=== PATIENT | female | born 1975 | race American Indian/Alaskan Native ===

== ENCOUNTER 2020-06-28 15:38 | Outpatient (CLI) | payer MEDICAID, OTHER | END 2020-06-28 15:39 | disposition home or self-care (01) | LOC: LABHHL 15:38 | PROVIDERS: ATTEND Surgery | DX: N63.11 Unspecified lump in the right breast, upper outer quadrant (principal) | CPT/HCPCS: 88305; 88341; 88342 ==

== ENCOUNTER 2020-08-07 10:22 | Day surgery (SDC) | payer MEDICAID, OTHER ==
[~2020-08-07 10:22] MED LIST: ACETAMINOPHEN 500 MG TAB PO SCH; BUPIVACAINE/PF (0.25%) 2.5 MG/ML 30 ML VIAL INFILTRATI ONE; HEPARIN 10,000 UNITS/10 ML VIAL ONE; LACTATED RINGERS 1,000 ML IV SCH; LIDOCAINE (1%) 10 MG/1 ML VIAL 20 ML MDV ONE; MIDAZOLAM 2 MG/2 ML INJ IV NR; SODIUM CHLORIDE 0.9% 100 ML ONE; ceFAZolin/Water 2 GM/20 ML 2 GM/20 ML SYRINGE IV NR
[2020-08-07] MEDS ORDERED: ONDANSETRON 4 MG/2 ML INJ IV PRN (11:08)
[2020-08-07] MEDS ORDERED: HYDROcodone/ACETAMINOPHEN 5-325 MG TAB PO PRN (11:08)
[2020-08-07] MEDS ORDERED: fentaNYL 100 MCG/2 ML INJ IV PRN (11:08)
--- NOTE | 2020-08-07 11:08 | Anesthesia Day of Surgery ---
Anesthesia Day of Surgery - Day of Surgery Patient Examined: Yes Patient H&P Reviewed: Yes Patient is NPO: Yes
--- NOTE | 2020-08-07 11:08 | Anesthesia Consultation ---
Anesthesia Consult and Med Hx Date of service: 08/07/20 - Airway Anesthetic Teeth Evaluation: Good ROM Head & Neck: Adequate Mental/Hyoid Distance: Adequate Mallampati Class: Class II Intubation Access Assessment: Probably Good - Pulmonary Exam CTA: Yes - Cardiac Exam Cardiac Exam: RRR - Pre-Operative Health Status ASA Pre-Surgery Classification: ASA2 Proposed Anesthetic Plan: MAC - Pulmonary Hx Smoking: No Hx Asthma: Yes Hx Respiratory Symptoms: No Hx Sleep Apnea: No (CORINNA PRE SCREEN NEGATIVE) - Cardiovascular System Hx Hypertension: No - Central Nervous System CVA: No - Endocrine Hx Renal Disease: No Hx Liver Disease: No Hx Insulin Dependent Diabetes: No Hx Non-Insulin Dependent Diabetes: No Hx Thyroid Disease: No - Other Systems Hx Cancer: Yes (breast ca) - Additional Comments Anesthesia Medical History Comments: No prior GA of FHx anesthetic complications.
[2020-08-07] MEDS ORDERED: propofoL 200 MG/20 ML VIAL IV ONE ×2 (12:13→13:13)
[2020-08-07] MEDS ORDERED: HYDROmorphone 1 MG/1 ML INJ ONE (12:13)
[2020-08-07] MEDS ORDERED: LIDOCAINE MPF (2%) 20 MG/1 ML VIAL 5 ML ONE (12:14)
[2020-08-07] MEDS ORDERED: MIDAZOLAM 2 MG/2 ML INJ ONE (12:34)
[2020-08-07] MEDS ORDERED: HEPARIN 10,000 UNITS/10 ML VIAL IV ONE (13:06)
[2020-08-07] MEDS ORDERED: SODIUM CHLORIDE 0.9% IRR 1,500 ML BOTTLE IR ONE (13:06)
[2020-08-07] MEDS ORDERED: SODIUM CHLORIDE 0.9% 100 ML IVPB IV ONE (13:07)
[2020-08-07] MEDS ORDERED: LIDOCAINE (1%) 10 MG/1 ML VIAL 20 ML MDV INFILTRATI ONE (13:08)
[2020-08-07] MEDS ORDERED: BUPIVACAINE/PF (0.25%) 2.5 MG/ML 30 ML VIAL INFILTRATI ONE (13:08)
--- NOTE | 2020-08-07 13:59 | Short Stay Summary ---
Short Stay Documentation Date of service: 08/07/20 - History Principal diagnosis: right breast cancer H&P: obtained from office - Allergies and Medications Current Medications: Allergies No Known Allergies Allergy (Verified 08/07/20 12:25) Home Medications Medication Instructions Recorded Confirmed Last Taken Type Calcitrate + Vit D Caplet 1 cap PO DAILY 08/02/20 08/07/20 08/06/20 08:00 History Multi For Her Tablet 1 cap PO DAILY 08/02/20 08/07/20 08/06/20 08:00 History Active Medications Acetaminophen (Tylenol) 1,000 mg PO PREOP NOEL Last Admin: 08/07/20 10:50 Dose: 1,000 mg Documented by: Hydrocodone Bitart/Acetaminophen (Anza 5/325) 2 each PO ONCE PRN PRN Reason: Pain, Moderate (4-6) Stop: 08/07/20 23:00 Fentanyl (Sublimaze) 50 mcg IV Q5MIN PRN PRN Reason: Pain , Severe (7-10) Stop: 08/07/20 23:00 Cefazolin Sodium (Ancef/Sterile Water 2 Gm/20 Ml) 2 gm in 20 mls @ 80 mls/hr IV PREOP NR Stop: 08/07/20 18:00 Lactated Ringer's (Lactated Ringers) 1,000 mls @ 100 mls/hr IV DIRECT NOEL Stop: 08/07/20 23:59 Last Admin: 08/07/20 11:00 Dose: 100 mls/hr Documented by: Midazolam HCl (Versed) 2 mg IV PREOP NR Stop: 08/07/20 18:00 Last Admin: 08/07/20 12:10 Dose: 2 mg Documented by: Ondansetron HCl (Zofran) 4 mg IV ONCE PRN PRN Reason: Nausea And Vomiting Stop: 08/07/20 23:00 - Brief post op/procedure progress note Date of procedure: 08/07/20 Pre-op diagnosis: right breast cancer Post-op diagnosis: same Procedure: left internal jugular port a cath placement with mindray ultrasound guidance Anesthesia: MAC, local Findings: good placement of port without PTX on CXR Surgeon: LALITA JONES Estimated blood loss: minimal Pathology: none Condition: stable - Hospital course Hospital course: Pt observed in PACU and discharged to home when criteria met - Disposition Condition at discharge: Good Disposition: DC-01 TO HOME OR SELFCARE Short Stay Discharge Plan Activity: no restrictions Diet: regular Wound: open to air, per your surgeon's advice Additional Instructions: Please see printed discharge paperwork Follow up with: PRIMARY CARE, [Primary Care Provider] - 7 Days LALITA JONES DO [Staff Physician] - 14 Days Prescriptions: HYDROcodone/APAP 5-325 [Anza 5-325 mg TAB] 1 each PO Q6H PRN #20 tablet PRN Reason: Pain , Severe (7-10)
--- NOTE | 2020-08-07 14:14 | Fluoroscopy Report ---
CHEST 1 VIEW 08/07/2020 1:07 PM INDICATION / CLINICAL INFORMATION: LEFT BREAST CANCER. COMPARISON: None available. FINDINGS: SUPPORT DEVICES: Left internal jugular Port-A-Cath has tip in SVC HEART / MEDIASTINUM: No significant abnormality. LUNGS / PLEURA: No significant pulmonary or pleural abnormality. No pneumothorax. ADDITIONAL FINDINGS: No significant additional findings. IMPRESSION: 1. No acute findings. Signer Name: Dusty Quinones MD Signed: 08/07/2020 2:09 PM Workstation Name: [id number]
--- NOTE | 2020-08-07 15:01 | Operative Report ---
Operative Report Operative Report: Date of procedure: 08/07/20 Pre-op diagnosis: right breast cancer Post-op diagnosis: same Procedure: left internal jugular port a cath placement with mindray ultrasound guidance Anesthesia: MAC, local Findings: good placement of port without PTX on CXR Surgeon: LALITA JONES Estimated blood loss: minimal Pathology: none Condition: stable Hospital course: Pt observed in PACU and discharged to home when criteria met HPI and indication: Patient is a 44-year-old female who has been diagnosed with right breast cancer. The patient is seen by Dr. Millard and deemed a candidate for chemotherapy. All of the risks associated with the procedure were discussed with the patient including but not limited to pneumothorax, infection, bleeding, malpositioned port, injury to other structures. The patient understands and all questions were answered. Consent was signed and placed on chart. Procedure in detail: The patient was identified in the preoperative area, taken back to operating room, placed on operating table in supine position. After anesthesia was induced both arms were tucked and upper chest and neck were prepped and draped in usual sterile fashion. A timeout was performed. The was placed in Trendelenburg position. Local anesthetic was infiltrated into the skin at the intended puncture site. The left subclavian vein and internal jugular vein were visualized using ultrasound guidance. 2 attempts were made to access the left subclavian vein which were unsuccessful. Therefore I accessed the left internal jugular vein. There was respiratory variation and the vein became near flat when the patient inspired. The left internal jugular vein was accessed on the second stick and there was return of dark red nonpulsatile blood. The wire was threaded under fluoroscopy without resistance and positio mark confirmed. The needle was then removed. Local anesthetic was infiltrated into the skin at the intended incision site and in the subcutaneous tissue along the tunnel. Using a 15 blade, an incision was made in the left upper chest and dissection carried down through the skin and subcutaneous tissue using Bovie electrocautery. Hemostasis was achieved along the way. A pocket for the port was then created bluntly and with electrocautery. The catheter was flushed and tunneled from the pocket to the wire. A breakaway catheter/dilator sheath then inserted over the wire under fluoroscopy, and the wire and dilator removed. The catheter was then inserted through the breakaway catheter which was then removed. The catheter sat flush under the skin. Using continuous fluoroscopy, the catheter was pulled back until the tip was visualized in the right atrium. The catheter was then cut to size and the port attached in the usual fashion. The port was then sutured into place to the pre-pectoral fascia using 2-0 Vicryl interrupted sutures. The wound was irrigated and hemostasis ensured. The port was tested with heparinized saline and there was return of blood and it flushed easily. The port was then instilled with 3000 units of undiluted heparin. The deep dermal layer was then closed with interrupted 3-0 Vicryl stitches. The skin incisions were closed with 4-0 Monocryl subcuticular stitches and skin glue. Intraoperative chest x-ray did show good positioning of the port, without evidence of pneumothorax At the end of the case, all sponge, instrument, sharp counts were correct 2. The patient was awoken from anesthesia and taken to PACU in stable condition.
--- NOTE | 2020-08-07 15:02 | Post Anesthesia Evaluation ---
- Post Anesthesia Evaluation Patient Participated: Yes Airway Patent: Yes Stable Respiratory Function: Yes Nausea/Vomiting: No Temp > 96.8F: Yes Pain Manageable: Yes Adequeate Hydration: Yes Anesthesia Complications: No
[2020-08-07 21:39] VITALS: BP 119/79
== END 2020-08-07 10:23 | disposition home or self-care (01) ==
LOC: OR 10:22
PROVIDERS: ATTEND Surgery
DX: C50.411 Malignant neoplasm of upper-outer quadrant of right female breast (principal); Z20.828 Contact with and (suspected) exposure to other viral communicable diseases; J45.909 Unspecified asthma, uncomplicated; Z79.899 Other long term (current) drug therapy; Z72.89 Other problems related to lifestyle; Z98.890 Other specified postprocedural states
CPT/HCPCS: 36561; 77001; 81025; C1769; C1788; J0690; J1170; J1644; J2250; J2704; J7120; U0003

== ENCOUNTER 2021-02-14 06:34 | Observation (INO) | payer MEDICAID ==
[~2021-02-14 06:34] MED LIST changes: -ACETAMINOPHEN 500 MG TAB PO SCH; -BUPIVACAINE/PF (0.25%) 2.5 MG/ML 30 ML VIAL INFILTRATI ONE; -HEPARIN 10,000 UNITS/10 ML VIAL ONE; -LACTATED RINGERS 1,000 ML IV SCH; -LIDOCAINE (1%) 10 MG/1 ML VIAL 20 ML MDV ONE; -MIDAZOLAM 2 MG/2 ML INJ IV NR; -SODIUM CHLORIDE 0.9% 100 ML ONE; +ceFAZolin/STERILE WATER 2 GM/20 ML SYRINGE IV NR; -ceFAZolin/Water 2 GM/20 ML 2 GM/20 ML SYRINGE IV NR
[2021-02-14] MEDS ORDERED: HYDROmorphone 1 MG/1 ML INJ IV PRN ×2 (07:41)
[2021-02-14] MEDS ORDERED: ONDANSETRON 4 MG/2 ML INJ IV PRN ×2 (07:41→13:44)
[2021-02-14] MEDS ORDERED: fentaNYL 100 MCG/2 ML INJ IV NR (07:41)
[2021-02-14] MEDS ORDERED: ACETAMINOPHEN 500 MG TAB PO NR (07:41)
[2021-02-14] MEDS ORDERED: MAGNESIUM OXIDE 400 MG TAB PO NR (07:41)
--- NOTE | 2021-02-14 07:42 | Anesthesia Day of Surgery ---
Anesthesia Day of Surgery - Day of Surgery Patient Examined: Yes Patient H&P Reviewed: Yes Patient is NPO: Yes
--- NOTE | 2021-02-14 07:43 | Anesthesia Consultation ---
Anesthesia Consult and Med Hx Date of service: 02/14/21 - Airway Anesthetic Teeth Evaluation: Good ROM Head & Neck: Adequate Mental/Hyoid Distance: Adequate Mallampati Class: Class II Intubation Access Assessment: Good - Pre-Operative Health Status ASA Pre-Surgery Classification: ASA2 Proposed Anesthetic Plan: General Nerve Block: ES - Pulmonary Hx Smoking: No Hx Asthma: Yes (LAST USED INHALER 2 YRS AGO) Hx Respiratory Symptoms: No (+2FS) COPD: No Hx Pneumonia: No Hx Sleep Apnea: No (CORINNA PRE SCREEN NEGATIVE) - Cardiovascular System Hx Hypertension: No Hx Heart Attack/AMI: No Hx Pacemaker: No Hx Internal Defibrillator: No - Central Nervous System Hx Seizures: No CVA: No Hx Back Pain: No Hx Psychiatric Problems: No - Endocrine Hx Renal Disease: No Hx End Stage Renal Disease: No Hx Cirrhosis: No Hx Liver Disease: No Hx Insulin Dependent Diabetes: No Hx Non-Insulin Dependent Diabetes: No Hx Thyroid Disease: No - Hematic Hx Anemia: Yes Hx Sickle Cell Disease: No - Other Systems Hx Alcohol Use: No Hx Substance Use: No Hx Cancer: Yes Hx Obesity: No
[2021-02-14] MEDS ORDERED: LACTATED RINGERS 1,000 ML IV SCH ×2 (07:45→13:45)
[2021-02-14] MEDS ORDERED: CELECOXIB 200 MG CAP PO NR (08:00)
[2021-02-14] MEDS ORDERED: MIDAZOLAM 2 MG/2 ML INJ IV NR (08:00)
[2021-02-14] MEDS ORDERED: GABAPENTIN 300 MG CAP PO NR (08:00)
[2021-02-14] MEDS ORDERED: SODIUM CHLORIDE P/F VIAL 10 ML 10 ML ONE (08:43)
[2021-02-14] MEDS ORDERED: METHYLENE BLUE 50 MG/10 ML AMP ONE (08:43)
[2021-02-14] MEDS ORDERED: dexAMETHasone 4 MG/ML VIAL ONE (08:58)
[2021-02-14] MEDS ORDERED: BUPIVACAINE/PF (0.25%) 2.5 MG/ML 30 ML VIAL INFILTRATI ONE (08:58)
[2021-02-14] MEDS ORDERED: ONDANSETRON 4 MG/2 ML INJ ONE (09:24)
[2021-02-14] MEDS ORDERED: propofoL 200 MG/20 ML VIAL IV ONE (09:24)
[2021-02-14] MEDS ORDERED: LIDOCAINE MPF (2%) 20 MG/1 ML VIAL 5 ML ONE (09:24)
[2021-02-14] MEDS ORDERED: HYDROmorphone 1 MG/1 ML INJ ONE (09:25)
[2021-02-14] MEDS ORDERED: LIDOCAINE 1%/EPINEPHRINE 1:100,000 VIAL (20 ML) INFILTRATI ONE ×2 (10:04→11:05)
[2021-02-14] MEDS ORDERED: BUPIVACAINE/PF (0.5%) 5 MG/1 ML 30 ML VIAL INFILTRATI ONE ×2 (10:04→11:05)
--- NOTE | 2021-02-14 10:05 | Operative Report ---
Operative Report Operative Report: Operative Report: February 14, 2021 Preoperative diagnosis: Right breast cancer of the upper outer quadrant with prior positive axillary lymph node Postoperative diagnosis: Same Procedure: Right partial mastectomy of the upper outer quadrant and SLNB followed by ALND Surgeon: Janey Gilman MD Intelligence Applications: Kristina Holguin MD Anesthesia: General Findings: Right breast with mass and clip present within radiograph specimen; x3 SLNs with at least 2 SLNs positive and proceeded with an ALND Complications: None EBL: 50 cc Drains: 15 Green[place]ic axillary drain Disposition: In OR for bilateral oncoplastic with PRS Indications for operative procedure: This is a 45 year old lady with right breast cancer of the upper outer quadrant, Stage III [id number] ER/NH positive (IDCA 11:00 position 10 cm from the nipple). She completed neoadjuvant chemotherapy with findings of decrease in size of prior breast cancer mass. Recommendations were to proceed with surgery with SLNB and possible ALND. Patient with axillary lymph node positive for malignancy prior to chemotherapy. She understood the possibility of possible ALND if SLN was positive on frozen section at the time of surgery. She understands the role of adjuvant radiation therapy. She wished to proceed with oncoplastic surgery immediately following surgery; right breast axillary tail mass with skin involvement and patient would benefit from oncoplastic surgery for closure. She wished to proceed with the above procedure. Procedure in detail: Anesthesia placed bilateral pectoral block; patient undergo bilateral oncoplastic surgery following right parital mastectomy. Patient was then taken to the operating room and was laid supine. Gen. anesthesia was administered. The right nipple was injected with radioisotope and 1 cc of Methylene blue dye. Right breast and axilla were prepped and draped in the normal sterile operative fashion. The mass-known breast cancer was palpable at the 11:00 position 7 cm FN and ultrasound used as well with mass and clip present at 11:00 position 10 cm FN. Timeout was performed. Wire was present within the axilla. Gamma probe was inserted into the axilla. The area of hot spot was identified. A right axillary tail incision was made with a 15 blade knife with dissection taken down to the subcutaneous tissues. The axillary fascia was opened with the Bovie cautery. Wire was used a guided to identify prior biopsied axillary lymph node, wire was not directly located within the lymph node but was present within the surrounding tissue. Axilla noted for reactive tissue. Three lymph nodes-SLNs were present with radioisotope uptake and blue dye present. SLNs were sent to pathology for frozen section with at least two of three lymph nodes positive for malignancy. She would therefore need and ALND given positive SLN. Attention was then taken towards the right breast. Ultrasound used as well for marking of incision. A lateral ellipictal breast incision was made encompassing the skin with breast mass given prior skin involvement with a 15 blade knife and dissection taken down to subcutaneous tissues. First began raising of the superior flap with dissection taken down to the pectoralis muscle past the area of known malignancy with good margins, followed by raising of the inferior flap, medial flap and lateral flap with all flaps taken down to the pectoralis muscle and past the area of known malignancy with good margins. The breast area of concern was appropriately removed posteriorly from the pectoralis muscle with the aid of the Bovie cautery. Specimen was marked and then sent to pathology and radiology; radiograph specimen with mass and clip present. Ultrasound used as well to evalute the margins. Breast cavity was irrigated and hemostasis was obtained. Attention was then taken towards the right axilla. First began opening of the axillary fascia further. The lattismus dorsi muscle was identified and followed superiorly. Then proceeded with identification of the axillary vein followed by identification of the thoracodorsal bundle and long thoracic nerve. Axillary lymph nodes were then removed from the above boundaries with the aid of the bovie cautery in a sweeping-like motion and then sent to pathology. Axillary lymph nodes from level I and II were removed. Both nerves were identified and unharmed. Axillary cavity was appropriately irrigated and suctioned. Hemostasis was noted. A 15 sinhala AMINA axillary drain was placed. Axillary fascia was approximated and closed using interrupted 3-0 Vicryl. Plastic surgery then proceed with bilateral oncoplastics. She tolerated surgery very well.
--- NOTE | 2021-02-14 10:06 | Short Stay Summary ---
Short Stay Documentation Date of service: 02/14/21 - History H&P: obtained from office - Allergies and Medications Current Medications: Allergies No Known Allergies Allergy (Verified 02/05/21 10:13) Home Medications Medication Instructions Recorded Confirmed Last Taken Type No Known Home Medications [No 02/05/21 02/05/21 Unknown History Reported Home Medications] Active Medications Acetaminophen (Acetaminophen 500 Mg Tab) 1,000 mg PO ONCE NR Stop: 02/14/21 18:00 Last Admin: 02/14/21 09:00 Dose: 1,000 mg Documented by: Cefazolin Sodium (Cefazolin/Sterile Water 2 Gm/20 Ml Syringe) 2 gm IV PREOP NR Stop: 02/14/21 20:00 Celecoxib (Celecoxib 200 Mg Cap) 400 mg PO PREOP NR Stop: 02/14/21 18:00 Last Admin: 02/14/21 09:00 Dose: 400 mg Documented by: Fentanyl (Fentanyl 100 Mcg/2 Ml Inj) 100 mcg IV ONCE NR Stop: 02/14/21 18:00 Last Admin: 02/14/21 09:08 Dose: 100 mcg Documented by: Gabapentin (Gabapentin 300 Mg Cap) 300 mg PO PREOP NR Stop: 02/14/21 18:00 Last Admin: 02/14/21 09:00 Dose: 300 mg Documented by: Hydromorphone HCl (Hydromorphone 1 Mg/1 Ml Inj) 0.25 mg IV Q10MIN PRN PRN Reason: Pain, Moderate (4-6) Stop: 02/14/21 20:00 Hydromorphone HCl (Hydromorphone 1 Mg/1 Ml Inj) 0.5 mg IV Q10MIN PRN PRN Reason: Pain , Severe (7-10) Stop: 02/14/21 20:00 Lactated Ringer's (Lactated Ringers) 1,000 mls @ 125 mls/hr IV DIRECT NOEL Last Admin: 02/14/21 09:00 Dose: 125 mls/hr Documented by: Magnesium Oxide (Magnesium Oxide 400 Mg Tab) 400 mg PO ONCE NR Stop: 02/14/21 18:00 Last Admin: 02/14/21 09:00 Dose: 400 mg Documented by: Midazolam HCl (Midazolam 2 Mg/2 Ml Inj) 2 mg IV PREOP NR Stop: 02/14/21 23:59 Last Admin: 02/14/21 09:08 Dose: 2 mg Documented by: Ondansetron HCl (Ondansetron 4 Mg/2 Ml Inj) 4 mg IV ONCE PRN PRN Reason: Nausea And Vomiting Stop: 02/14/21 18:00 - Brief post op/procedure progress note Date of procedure: 02/14/21 Pre-op diagnosis: Right breast cancer upper outer quadrant Post-op diagnosis: same Procedure: Right partial mastectomy with SLNB followed by immediate ALND Anesthesia: GETA Findings: Right partial mastectomy with SLNB with positive x2 SLNS and proceeded with ALND Surgeon: TRACY DUPONT Estimated blood loss: 50-100ml Pathology: list Specimen disposition: to lab Condition: stable - Disposition Condition at discharge: Good Disposition: DC/TX-02 SHRT-TRM GEN HOSP IP Short Stay Discharge Plan Activity: other (no heavy lifting) Diet: regular Wound: keep clean and dry (wear breast bra) Follow up with: TRACY DUPONT MD [Staff Physician] - 7 Days
--- NOTE | 2021-02-14 10:19 | Operative Report ---
Operative Report Operative Report: Preoperative diagnosis: Right breast cancer of the upper outer quadrant with prior positive axillary lymph node Postoperative diagnosis: Same Procedure: 1. Bilateral Oncoplastic Breast Reductions 2. Bilateral application of negative pressure wound vac devices. Surgeon: Kevin Bledsoe MD [employer] System Operator: Kristina Holguin MD Anesthesia: General Findings: Right breast with mass, right lumpectomy defect Complications: None EBL: Less than 50 cc Drains: none Disposition: PACU in good condition Specimens: Right breast issue total weight 140grams, left breast tissue total weight 180 grams Indications for operative procedure: This is a 45 year old lady with right breast cancer of the upper outer quadrant, Stage I [id number] triple negative (IDCA 10:00 position 7 cm from the nipple). She completed neoadjuvant chemotherapy with findings of decrease in size of prior breast cancer mass. Recommendations were to proceed with surgery with SLNB and possible ALND. Referred by Dr Genao for reconstruction. Decided on Oncoplastic reductions given size and ptosis. Risks and benefits discussed and patient agreed. Procedure in detail: Anesthesia placed bilateral pectoral block; patient undergo bilateral oncoplastic surgery. Patient was then taken to the operating room. Gen. anesthesia was administered. Preop antibiotics given. Timeout performed and verified. Dr genao began on the right breast with the lumpectomy. I began on the left breast with the reduction. A supermedial based breast reduction was performed using a madison pattern on the skin. Inferior and lateral excess breast tissue was removed. Irrigation performed and hemostasis achieved. Breast closed with carina temporarily. Once Dr Genao was done I assessed the lumpectomy defect. We then performed a madison pattern reduction using a super medial pedicle as well as rearrangement of internal tissue to fill the mastectomy defect. hemostasis achieved and breast irrigated. Mixture of lidocaine and marcaine was used for additional analgesia. Breast closed with carina. Sat patient up and assessed for size and symmetry. New NAC position marked. Additonal skin excisions performed as needed for the tailor tacking and the NAC. The NAC was delivered and stapled in place. Closure began. 3-0 PDS deep dermals. 2-0 Vicryl at the T junction closure. Then a running 3-0 monocryl barbed suture in a subcuticular fashion. FLORA negative pressure wound vac device placed over both breasts for postop wound healing after applying skin glue. Patient placed into a support bra, awakened from anesthesia and transferred to PACU in stable condition.
[2021-02-14] MEDS ORDERED: SODIUM CHLORIDE 0.9% IRR 1,500 ML BOTTLE IR ONE (11:06)
[2021-02-14] MEDS ORDERED: PHENYLEPHRINE/NS 1,000 MCG/10 ML SYRINGE (OR USE) IV ONE (12:13)
[2021-02-14] MEDS ORDERED: LACTATED RINGERS 1,000 ML ONE (12:13)
[2021-02-14] MEDS ORDERED: KETOROLAC 30 MG/1 ML INJ ONE (12:13)
[2021-02-14] MEDS ORDERED: ROCURONIUM 50 MG/5 ML INJ IV ONE ×2 (12:13→14:18)
--- NOTE | 2021-02-14 12:34 | Ultrasound Report ---
ULTRASOUND-GUIDED NEEDLE LOCAL RIGHT BREAST DIAGNOSTIC MAMMOGRAM UNILATERAL, RIGHT HISTORY: Right breast cancer, abnormal right axillary lymph node COMPARISON: 12/12/2020 DESCRIPTION OF PROCEDURE: Risks, benefits and indications to the procedure were discussed with the karrie granados. The patient agreed to proceed with both verbal and written consent. A time out procedure was p erformed with 2 patient identifiers. The right axillary region was prepped and draped in sterile fashion. Skin anesthesia was accomplished with 5 cc of lidocaine 1%. Under direct ultrasound guidance, a 5 cm localization wire was placed wit h its distal tip through the 6 x 10 mm right axillary lymph node containing a biopsy clip. A postbiop sy mammogram confirms satisfactory positioning of the localization wire. The wire was secured to the skin with a sterile dressing. The patient tolerated the procedure without difficulty. No complications were encountered. IMPRESSION: Satisfactory ultrasound-guided wire localization of the right axillary lymph node. Signer Name: Buck Miller Jr, MD Signed: 02/14/2021 12:29 PM Workstation Name: [id number]
[2021-02-14] MEDS ORDERED: METHYLENE BLUE 50 MG/10 ML AMP IRRIGATION ONE (12:45)
[2021-02-14] MEDS ORDERED: SODIUM CHLORIDE 0.9% P/F 10 ML VIAL INFILTRATI ONE (12:46)
[2021-02-14] MEDS ORDERED: WATER FOR IRRIG STERILE 1,500 ML BOTTLE IR ONE (12:46)
[2021-02-14] MEDS ORDERED: ACETAMINOPHEN 325 MG TAB PO PRN (13:44)
[2021-02-14] MEDS ORDERED: oxyCODONE /ACETAMINOPHEN 5-325MG TAB PO PRN (13:44)
[2021-02-14] MEDS ORDERED: HYDROmorphone 2 MG TAB PO PRN (13:44)
[2021-02-14] MEDS ORDERED: METOCLOPRAMIDE 10 MG TAB PO PRN (13:44)
[2021-02-14] MEDS ORDERED: MORPHINE 2 MG/1 ML INJ IV PRN (13:46)
[2021-02-14] MEDS ORDERED: dexAMETHasone 20 MG/5 ML VIAL ONE (14:18)
[2021-02-14] MEDS ORDERED: diphenhydrAMINE 25 MG CAP PO PRN (14:44)
--- NOTE | 2021-02-14 17:18 | Post Anesthesia Evaluation ---
- Post Anesthesia Evaluation Patient Participated: Yes Airway Patent: Yes Stable Respiratory Function: Yes Nausea/Vomiting: No Temp > 96.8F: Yes Pain Manageable: Yes Adequeate Hydration: Yes Anesthesia Complications: No Block Receding Appropriately: Yes Patient on Ventilator: No
--- NOTE | 2021-02-14 17:53 | Mammography Report ---
RIGHT BREAST SPECIMEN RADIOGRAPH INDICATION / CLINICAL INFORMATION: Post excisional biopsy. COMPARISON: Right breast mammogram earlier today. FINDINGS: The targeted spiculated mass and associated biopsy clip are contained within the submitted breast spe cimen. Signer Name: Papo An MD Signed: 02/14/2021 5:49 PM Workstation Name: [id number]
[2021-02-14 21:23] VITALS: BP 114/76
[2021-02-14] MEDS ORDERED: DOCUSATE SODIUM 100 MG CAP PO SCH (22:00)
== END 2021-02-14 18:00 | disposition home or self-care (01) ==
LOC: OR 06:34 → OB 13:44
PROVIDERS: ADMIT Surgery; ATTEND Surgery
DX: C50.411 Malignant neoplasm of upper-outer quadrant of right female breast (principal); Z20.822 Contact with and (suspected) exposure to COVID-19; N62 Hypertrophy of breast; N65.1 Disproportion of reconstructed breast; N64.89 Other specified disorders of breast; Z98.82 Breast implant status; Z79.899 Other long term (current) drug therapy; Z98.890 Other specified postprocedural states
CPT/HCPCS: 19285; 19301; 19318; 38525; 38792; 64450; 76098; 77065; 78800; 81025; 88305; 88307; 88331; 88341; 88342; 97605; A4648; A9541; G0378; J0690; J1100; J1170; J1885; J2250; J2370; J2405; J2704; J3010; J7120; Q9968; U0003; 88333